=== PATIENT | female | born 1940 | race Caucasian/White ===

== ENCOUNTER → 2017-03-23 | Outpatient (CLI) | payer BC ==
[~2017-03-23] MED LIST: AGM875 PO
--- NOTE | 2017-03-23 10:45 | DIAGNOSTIC IMAGING REPORT ---
RIGHT VENOUS DOPP LOWER EXT UNILAT CLINICAL HISTORY: M79.89 Right leg swelling Right pain. Edema. TECHNIQUE: Venous Doppler COMPARISON STUDY: None FINDINGS: No evidence for deep venous thrombosis. 3 cm popliteal cyst posterior to the medial right knee IMPRESSION: 1. No evidence for deep venous thrombosis. 2. 3 cm popliteal cyst The above report was generated using voice recognition software. It may contain grammatical, syntax or spelling errors. Electronically signed by: Chan Rodriguez M.D. 03/23/2017 10:44 AM Dictated Date/Time: 03/23/2017 10:44 AM
== END | disposition home or self-care (01) ==
LOC: C.ULTRBC 09:58
PROVIDERS: ATTEND Physician Assistant
DX: M79.89 Other specified soft tissue disorders (principal); M71.21 Synovial cyst of popliteal space [Baker], right knee

== ENCOUNTER → 2017-03-30 | Outpatient (CLI) | payer BC ==
--- NOTE | 2017-03-30 14:50 | DIAGNOSTIC IMAGING REPORT ---
RIGHT KNEE 4 OR MORE CLINICAL HISTORY: RIGHT KNEE PAIN Right COMPARISON STUDY: None. FINDINGS: No fracture or dislocation within the right knee. Mild cartilage space narrowing within the medial compartment. Small tricompartmental marginal osteophytes. Moderate joint effusion. Moderate cartilage space narrowing at the patellofemoral joint. IMPRESSION: 1. No fractures within the right knee. 2. Moderate joint effusion. 3. Mild to moderate right knee osteoarthritis. Electronically signed by: Rashard Zaidi M.D. 03/30/2017 2:49 PM Dictated Date/Time: 03/30/2017 2:47 PM
== END | disposition home or self-care (01) ==
LOC: C.RDSM 12:21
PROVIDERS: ATTEND Physician Assistant
DX: M25.561 Pain in right knee (principal); M25.461 Effusion, right knee; M17.31 Unilateral post-traumatic osteoarthritis, right knee

== ENCOUNTER → 2017-05-20 | Outpatient (CLI) | payer BC ==
--- NOTE | 2017-05-20 14:08 | DIAGNOSTIC IMAGING REPORT ---
R LOWER EXT JOINT WITHOUT CLINICAL HISTORY: 76 years-old Female with RT KNEE PAIN. Acute right knee pain status post hiking-injury. COMPARISON: Right knee radiographs 03/30/2017 TECHNIQUE: Multiplanar, multisequence MRI of the right knee was performed without intravenous contrast. FINDINGS: MENISCI: Linear area of horizontal undersurface increased signal of the posterior junction medial meniscus is noted nicely seen on image 15 of series 7 and image 19 of series 6. There is mild medial extrusion of the meniscus into the adjacent meniscal gutter. Additionally, there is mild adjacent reactive edema. No displaced fragment identified. Additionally, there is amorphous vertically oriented increased signal the posterior horn medial meniscus extending towards the meniscal root as seen on images 13 and 14 of series 7 suspicious for vertical longitudinal root tear. Lateral meniscus is sharp in contour and appears intact. CRUCIATE LIGAMENTS: The anterior and posterior cruciate ligaments are normal in signal, morphology and course. COLLATERAL LIGAMENTS: The popliteus tendon, biceps femoris tendon, fibular collateral ligament and iliotibial band are intact. The superficial and deep components of the medial collateral ligament are intact. Mild amount of fluid is noted both superficial and deep to the MCL, likely reactive. EXTENSOR MECHANISM: The quadriceps and patellar tendons are intact.There is moderate thickening with intermediate T2 signal noted involving both the proximal and mid to distal fibers of the patellar tendon suggesting mild tendinosis The medial and lateral patellar retinacula are intact. KNEE JOINT: Tricompartmental osteoarthritis is noted, mild in the lateral compartment, [id number] within the patellofemoral and moderate within the medial compartment. Areas of high-grade chondral loss are present within the mid and posterior weightbearing surfaces of the medial femoral condyle with moderate associated bone marrow edema. Mostly low-grade chondral loss is seen within the lateral compartment. There is a 4 x 6 x 4 mm loose body noted within the anterolateral aspect of the intercondylar notch seen on image 17 series 5 and image 9 series 7. There is a moderate-sized joint effusion with synovitis. BONE MARROW: No acute fracture identified. Bone marrow edema as above. SOFT TISSUES: Mild soft tissue edema is noted about the knee with ill-defined fluid signal noted within the superficial pretibial bursa. Small Shrestha's cyst is noted, 1.7 x 0.4 x 4.8 cm. IMPRESSION: 1. Tricompartmental osteoarthritis, most pronounced within the medial compartment where there is moderate disease with areas of high-grade chondral loss and moderate associated bone marrow edema, likely reactive. 4 mm loose body noted within the anterolateral intercondylar notch. 2. Horizontal undersurface tear of the posterior junction medial meniscus. Vertically oriented amorphous signal of the posterior horn and posterior root medial meniscus is suspicious for a vertical longitudinal tear. 3. Mild patellar tendinosis. 4. Large joint effusion with synovitis. 5. Small Shrestha's cyst. The above report was generated using voice recognition software. It may contain grammatical, syntax or spelling errors. Electronically signed by: Reza Menjivar M.D. 05/20/2017 2:07 PM Dictated Date/Time: 05/20/2017 1:08 PM
== END | disposition home or self-care (01) ==
LOC: C.MRI 12:07
PROVIDERS: ATTEND Physician Assistant
DX: M17.11 Unilateral primary osteoarthritis, right knee (principal); S83.241A Other tear of medial meniscus, current injury, right knee, initial encounter; M76.51 Patellar tendinitis, right knee; M65.9 Synovitis and tenosynovitis, unspecified; M71.21 Synovial cyst of popliteal space [Baker], right knee; X58.XXXA Exposure to other specified factors, initial encounter

== ENCOUNTER → 2017-12-21 | Outpatient (CLI) | payer BC | END | disposition home or self-care (01) | LOC: C.PATHSPEC 17:13 | PROVIDERS: ATTEND Physician Assistant | DX: C44.519 Basal cell carcinoma of skin of other part of trunk (principal) ==